=== PATIENT | female | born 1950 | race Hispanic/Latino ===

== ENCOUNTER 2020-03-01 23:20 | Inpatient (IN) | payer MEDICARE, OTHER ==
[~2020-03-01] VITALS: Ht 154.9 cm; Wt 74.8 kg
[2020-03-01] MEDS ORDERED: CEFEPIME 1GM/NS 0.9% 50 ML 50 ML IV STA (23:28)
[2020-03-01] MEDS ORDERED: VANCOMYCIN 1GM/NS 250 ML 250 ML IV STA (23:28)
[2020-03-02] VITALS (10 sets, daily range): BP systolic 132–174; BP diastolic 58–70
[2020-03-02 00:03] LABS: BASOPHILS # (AUTO) 0.1 (0.0-0.1); BASOPHILS % 0.6 % (0.0-1.0); EOSINOPHILS # (AUTO) 0.3 (0.0-0.4); EOSINOPHILS % 2.8 % (0.0-6.0); LYMPHOCYTES % 24.6 % (18.0-39.1); MEAN CORPUSCULAR HEMOGLOBIN 28.6 pg (28-32); MEAN CORPUSCULAR HGB CONC 32.4 g/dL (31-35); MEAN CORPUSCULAR VOLUME 88.1 fL (81-99); MONOCYTES % 8.3 % (4.4-11.3); NEUTROPHILS # (AUTO) 7.6 (2.1-6.9); NEUTROPHILS % 63.1 % (38.7-80.0); PLATELET COUNT 292 x10e3/uL (140-360); RED CELL DISTRIBUTION WIDTH 13.2 % (11.7-14.4)
[2020-03-02 00:09] LABS: ALBUMIN 3.7 g/dL (3.5-5.0); ANION GAP 15.4 mmol/L (8-16); CALCIUM 9.6 mg/dL (8.4-10.2); CREATININE, SERUM 0.98 mg/dL (0.57-1.11); POTASSIUM 4.4 mmol/L (3.5-5.1)
--- NOTE | 2020-03-02 00:17 | Emergency Department Note ---
History of Present Illnes History of Present Illness Chief Complaint: Extremity Trauma/Pain History of Present Illness This is a 69 year old female arrived to the ED with complaints of 10 days of right thumb pain. Patient states she was given approximately and skin cream with no improvement. Patient admits to having a little bit of drainage a few days ago and tried squeezing it, patient states she is a diabetic. Chief Complaint Comment 69 Y/O FEMALE PT AAOX3 PRESENTS TO ED WITH EDEMA AND PAIN TO RIGHT THUMB X1 WEEK; PT WAS SEEN BY PCP (DR. IBARRA ON 02/27/2020) AND RX'D DOXYCYCLINE AND MUPIROCIN; NO DRAINAGE NOTED AT THIS TIME; 20 GAUGE IV CATH PLACED TO PTS LEFT WRIST, BLOOD OBTAINED FOR LAB ANALYSIS, CULTURES; ER MD TO TRIAGE FOR INITIAL EVAL Historian: Patient Arrival Mode: Car Onset (how long ago): day(s) Radiation: Reports non-radiation Severity: moderate Onset quality: gradual Duration (how long): day(s) Timing of current episode: constant Progression: worsening Chronicity: new Past Medical/Family History Physician Review I have reviewed the patient's past medical and family history. Any updates have been documented here. Past Medical History Recent Fever: No Clinical Suspicion of Infectio: No New/Unexplained Change in Ment: No Past Medical History: Hypertension, Diabetes, Hypothyroidism Past Surgical History: Hysterectomy Family History Family history of heart diseas: Yes Other Last Tetanus: UNKNOWN Review of Systems Review of Systems Constitutional: Reports no symptoms EENTM: Reports no symptoms Cardiovascular: Reports no symptoms Respiratory: Reports no symptoms Gastrointestinal: Reports no symptoms Genitourinary: Reports no symptoms Musculoskeletal: Reports as per HPI, Reports joint pain Integumentary: Reports no symptoms Neurological: Reports no symptoms Psychological: Reports no symptoms Endocrine: Reports no symptoms Hematological/Lymphatic: Reports no symptoms Physical Exam Related Data Triage Vital Signs Vital Signs Date Time Temp Pulse Resp B/P (MAP) Pulse Ox O2 Delivery O2 Flow Rate FiO2 03/01/20 23:29 99.0 81 18 183/91 97 Vital signs reviewed: Yes Physical Exam CONSTITUTIONAL Constitutional: Present well-developed, Present well-nourished HENT HENT: Present normocephalic, Present atraumatic, Present oropharynx clear/moist, Present nose normal HENT L/R: Present left ext ear normal, Present right ext ear normal EYES Eyes: Reports PERRL, Reports conjunctivae normal NECK Neck: Present ROM normal PULMONARY Pulmonary: Present effort normal, Present breath sounds normal CARDIOVASCULAR Cardiovascular: Present regular rhythm, Present heart sounds normal, Present capillary refill normal, Present normal rate GASTROINTESTINAL Abdominal: Present soft, Present nontender, Present bowel sounds normal GENITOURINARY Genitourinary: Present exam deferred SKIN Skin: Present dry, Present other (6 x 8 cm abscess noted over the medial and la teral aspect of right thumb) MUSCULOSKELETAL Musculoskeletal: Present ROM normal NEUROLOGICAL Neurological: Present alert, Present oriented x 3, Present no gross motor or sensory deficits PSYCHOLOGICAL Psychological: Present mood/affect normal, Present judgement normal Results Laboratory Laboratory Laboratory Tests Test 03/01/20 23:20 Lab results reviewed: Yes Laboratory comments Laboratory Tests Test 03/02/20 01:23 03/01/20 23:20 Bedside Glucose 209 mg/dL (70-120) White Blood Count 11.98 x10e3/uL (4.8-10.8) Red Blood Count 4.20 x10e6/uL (3.6-5.1) Hemoglobin 12.0 g/dL (12.0-16.0) Hematocrit 37.0 % (34.2-44.1) Mean Corpuscular Volume 88.1 fL (81-99) Mean Corpuscular Hemoglobin 28.6 pg (28-32) Mean Corpuscular Hemoglobin Concent 32.4 g/dL (31-35) Red Cell Distribution Width 13.2 % (11.7-14.4) Platelet Count 292 x10e3/uL (140-360) Neutrophils (%) (Auto) 63.1 % (38.7-80.0) Lymphocytes (%) (Auto) 24.6 % (18.0-39.1) Monocytes (%) (Auto) 8.3 % (4.4-11.3) Eosinophils (%) (Auto) 2.8 % (0.0-6.0) Basophils (%) (Auto) 0.6 % (0.0-1.0) Neutrophils # (Auto) 7.6 (2.1-6.9) Lymphocytes # (Auto) 3.0 (1.0-3.2) Monocytes # (Auto) 1.0 (0.2-0.8) Eosinophils # (Auto) 0.3 (0.0-0.4) Basophils # (Auto) 0.1 (0.0-0.1) Absolute Immature Granulocyte (auto 0.07 x10e3/uL (0-0.1) Sodium Level 138 mmol/L (136-145) Potassium Level 4.4 mmol/L (3.5-5.1) Chloride Level 105 mmol/L (98-107) Carbon Dioxide Level 22 mmol/L (22-29) Anion Gap 15.4 mmol/L (8-16) Blood Urea Nitrogen 19 mg/dL (7-26) Creatinine 0.98 mg/dL (0.57-1.11) Estimat Glomerular Filtration Rate 56 ML/MIN (60-) BUN/Creatinine Ratio 19 (6-25) Glucose Level 274 mg/dL (74-118) Calcium Level 9.6 mg/dL (8.4-10.2) Total Bilirubin 0.4 mg/dL (0.2-1.2) Aspartate Amino Transf (AST/SGOT) 19 IU/L (5-34) Alanine Aminotransferase (ALT/SGPT) 35 IU/L (0-55) Alkaline Phosphatase 106 IU/L (40-150) Total Protein 7.5 g/dL (6.5-8.1) Albumin 3.7 g/dL (3.5-5.0) Globulin 3.8 g/dL (2.3-3.5) Albumin/Globulin Ratio 1.0 (0.8-2.0) Imaging Imaging results reviewed: Yes Impressions 1. 1.8 cm soft tissue contour abnormality at the level of the first finger interphalangeal joint with associated soft tissue swelling. No underlying bony abnormality. This may reflect an abscess in the appropriate clinical setting. Assessment & Plan Medical Decision Making MDM 69-year-old female brought to the ED with marked right thumb abscess, patient on doxycycline as an outpatient, however, states abscess is worsening. No area of fluctuance noted on exam. Given patient's history of diabetes and failed outpatient therapy she required hospital admission for IV antibiotics and hand/plastic surgery consultation for I&D. Assessment & Plan Final Impression: (1) Abscess of thumb, right Depart Disposition: ADMITTED Last Vital Signs Date Time Temp Pulse Resp B/P (MAP) Pulse Ox O2 Delivery O2 Flow Rate FiO2 03/01/20 23:29 99.0 81 18 183/91 97 Home Meds Reported Medications Doxycycline Hyclate (DOXYCYCLINE HYCLATE) 100 Mg Capsule, 100 MG PO DAILY, CAP 03/02/20 Losartan Potassium (LOSARTAN POTASSIUM) 25 Mg Tablet, 50 DAILY 03/02/20 Levothyroxine Sodium (LEVOTHYROXINE SODIUM) 50 Mcg Tablet, 25 MCG PO DAILY, #30 TAB 03/02/20 Glimepiride (GLIMEPIRIDE) 2 Mg Tablet, 4 MG PO BID, TAB 03/02/20 Sitagliptin Phosphate (JANUVIA) 100 Mg Tablet, 100 MG PO DAILY, #30 TAB 03/02/20 Metformin Hcl (METFORMIN HCL) 500 Mg Tablet, 1000 MG PO BID, #60 TAB 03/02/20 Carvedilol (CARVEDILOL) 12.5 Mg Tablet, 12.5 MG PO BID, #60 TAB 03/02/20 Atorvastatin Calcium (ATORVASTATIN CALCIUM) 20 Mg Tablet, 40 MG PO HS, #30 TAB 03/02/20 Medications in the ED Vancomycin HCl 250 ml @ 200 mls/hr NOW STAT IV ; Start 03/01/20 at 23:28; Stop 03/02/20 at 00:42 Cefepime HCl 50 ml @ 100 mls/hr Q24H STAT IV ; Start 03/01/20 at 23:28; Stop 03/01/20 at 23:57; Status DC LEONIDES ALEXANDER DO Mar 02, 2020 00:17
[2020-03-02] MEDS ORDERED: HYDROCODONE/APAP 5MG-325MG TAB PO PRN (00:30)
--- NOTE | 2020-03-02 01:22 | Diagnostic Imaging Report ---
Exam: Right Hand Series. History: Diabetic, thumb infection Comparison: None. Findings: 3 views of the right hand. There is normal bone mineralization. Negative for acute, displaced fracture or dislocation. The joint spaces are preserved. 1.8 cm soft tissue contour abnormality at the level of the first finger interphalangeal joint . Associated soft tissue swelling. No cystic erosive changes. Impression: 1. 1.8 cm soft tissue contour abnormality at the level of the first finger interphalangeal joint with associated soft tissue swelling. No underlying bony abnormality. This may reflect an abscess in the appropriate clinical setting. Signed by: Dr. Lev Bradley M.D. on 03/02/2020 1:19 AM
--- NOTE | 2020-03-02 02:35 | NUR ---
PT IS TRANSFERRED FROM ER .RESPIRATIONS ARE EVEN AND UNLABORED ,SKIN WARM AND DRY TO TOUCH .LEFT WRIST S/L RT THUMB ABSCESS.ASSESSMENT DONE .ORIENTED TO THE PT TO THE ENVIRONMENT .CALL LIGHT WITH IN REACH .CONTINUE TO MONITOR
[2020-03-02] MEDS ORDERED: METFORMIN HCL500 MG PO (02:53)
[2020-03-02] MEDS ORDERED: DOXYCYCLINE HY100 MG PO (02:53)
[2020-03-02] MEDS ORDERED: LOSARTAN POTASS25 MG (02:53)
[2020-03-02] MEDS ORDERED: CARVEDILOL12.5 MG PO (02:53)
[2020-03-02] MEDS ORDERED: GLIMEPIRIDE2 MG PO (02:53)
[2020-03-02] MEDS ORDERED: ATORVASTATIN CA20 MG PO (02:53)
[2020-03-02] MEDS ORDERED: LEVOTHYROXINE50 MCG PO (02:53)
[2020-03-02] MEDS ORDERED: JANUVIA100 MG PO (02:53)
[2020-03-02] MEDS: HYDROCODONE/APAP 5MG-325MG TAB PO PRN ×2 (06:15→14:58)
--- NOTE | 2020-03-02 06:50 | NUR ---
RECEIVED BEDSIDE SHIFT REPORT FROM OFF GOING NURSE. PATIENT IS RESTING IN BED. NO ACUTE DISTRESS NOTED. CALL LIGHT WITHIN REACH. BED IN THE LOWEST POSITION.
--- NOTE | 2020-03-02 07:03 | NUR ---
BEDSIDE REPORT GIVEN TO THE ONCOMING NURSE
--- NOTE | 2020-03-02 11:54 | NUR ---
H&P cc: finger infection HPI: 69yoF, PCP , developed finger infection right thumb; ongoing for 6 days; no f/c/s/. PMH: hypothyroisim, DM2, HTN, HLD, PSHX: hysterectomy ALlergies; see emr FH/SH; ; no cigs meds; see MAR ROS: no f/c/s/N/V/D/DOHERTY/cp/sob/skin rash/dizziness/confusion v/s; revd PE tired appearing anicteric ns1s2 mod bs soft nt nd right thumb with blister-like appearing with edema/tenderness/warmth skin dry flat affect a&ox3; [place] labs/meds revd A/P: Thumb abscess- IV vanco/zosyn; wound care; Dm2- hab1c/lipids; ssi FARHANA- IVF Hypothyroidism- replacement HTN- treat as needed. HLD- statin Obesity- hba1c/lipids BMI 31.2- as above Prop: scd Dispo: Timo Wood MD, PhD.
[2020-03-02] MEDS ORDERED: DEXTROSE 50% SYRINGE 50 ML IV PRN (12:00)
[2020-03-02] MEDS ORDERED: SODIUM CHLORIDE 0.9% 250ML 250 ML ONE (12:15)
[2020-03-02] MEDS: INSULIN REGULAR, HUMAN 100 UNIT/1 ML 3ML VIAL SQ SCH ×3 (12:20→22:00)
[2020-03-02] MEDS: PIPER-TAZ 3.375 GM 50 ML IV SCH ×2 (12:35→17:19)
[2020-03-02] MEDS: VANCOMYCIN 1GM/NS 250 ML 250 ML IV SCH (13:16)
[2020-03-02] MEDS: SITAGLIPTIN 100 MG TAB PO SCH (17:00)
[2020-03-02] MEDS: CARVEDILOL 12.5 MG TAB PO SCH (17:18)
[2020-03-02] MEDS ORDERED: ACETAMINOPHEN 325 MG TAB PO PRN (17:45)
[2020-03-02] MEDS ORDERED: ONDANSETRON HCL INJ 2MG/ML 2ML 2 MG/ML VIAL IV PRN (17:45)
[2020-03-02] MEDS ORDERED: ZOLPIDEM TARTRATE 5 MG TAB PO PRN (17:45)
[2020-03-02] MEDS ORDERED: DOCUSATE SODIUM 100 MG CAP PO PRN (17:45)
--- NOTE | 2020-03-02 19:23 | NUR ---
BEDSIDE SHIFT REPORT GIVEN TO ONCOMING NURSE. PATIENT IS RESTING IN BED. NO S/S OF DISTRESS NOTED AT THIS TIME. CALL LIGHT WITHIN REACH. BED IN THE LOWEST POSITION.
--- NOTE | 2020-03-02 19:47 | NUR ---
RECIVED PT IN BED AOX3 C/O PAIN .CALL LIGHT WITH IN REACH.CONTINUE TO MONITOR
[2020-03-02] MEDS: ATORVASTATIN 40 MG TAB PO SCH (21:00)
[2020-03-02] MEDS ORDERED: ATORVASTATIN 20 MG TAB PO SCH (21:00)
[2020-03-02] MEDS: TRAMADOL HCL 50 MG TAB PO PRN (21:30)
[2020-03-03] VITALS (9 sets, daily range): BP systolic 104–161; BP diastolic 59–87
[2020-03-03] MEDS: VANCOMYCIN 1GM/NS 250 ML 250 ML IV SCH ×2 (01:17→13:53)
[2020-03-03] MEDS: PIPER-TAZ 3.375 GM 50 ML IV SCH ×5 (05:20→23:48)
[2020-03-03] MEDS: LEVOTHYROXINE SODIUM 50 MCG TAB PO SCH (05:20)
[2020-03-03] MEDS: HYDROCODONE/APAP 5MG-325MG TAB PO PRN (05:30)
--- NOTE | 2020-03-03 05:30 | NUR ---
IM- progress note O/N see below ROS: no f/c/s/N/V/D/DOHERTY/cp/sob/skin rash/dizziness/confusion v/s; revd PE tired appearing anicteric ns1s2 mod bs soft nt nd right thumb with blister-like appearing with edema/tenderness/warmth skin dry flat affect a&ox3; [place] labs/meds revd A/P: Thumb abscess- IV vanco/zosyn; wound care; Dm2- hab1c/lipids; ssi FARHANA- IVF Hypothyroidism- replacement HTN- treat as needed. HLD- statin Obesity- hba1c/lipids BMI 31.2- as above Prop: scd Dispo: 03/03 check labs; finger debridement today Timo Wood MD, PhD.
--- NOTE | 2020-03-03 05:49 | NUR ---
PT C/O PAIN AND MEDICATED WITH TRAMADOL AND NORCO .CALL LIGHT WITH IN REACH .CONTINUE TO MONITOR
[2020-03-03 06:06] LABS: BASOPHILS % 0.3 % (0.0-1.0); EOSINOPHILS # (AUTO) 0.4 (0.0-0.4); HEMATOCRIT 34.2 % (34.2-44.1); HEMOGLOBIN 11.1 g/dL (12.0-16.0); LYMPHOCYTES # (AUTO) 2.6 (1.0-3.2); LYMPHOCYTES % 28.7 % (18.0-39.1); MEAN CORPUSCULAR HEMOGLOBIN 28.5 pg (28-32); MEAN CORPUSCULAR HGB CONC 32.5 g/dL (31-35); MEAN CORPUSCULAR VOLUME 87.7 fL (81-99); MONOCYTES # (AUTO) 0.8 (0.2-0.8); MONOCYTES % 9.2 % (4.4-11.3); NEUTROPHILS # (AUTO) 5.2 (2.1-6.9); NEUTROPHILS % 57.4 % (38.7-80.0); PLATELET COUNT 309 x10e3/uL (140-360); RED CELL DISTRIBUTION WIDTH 13.2 % (11.7-14.4)
[2020-03-03 06:14] LABS: CHOL/HDL RATIO 4.8 (3.0-3.6)
[2020-03-03 07:01] LABS: ANION GAP 11.9 mmol/L (8-16); BLOOD UREA NITROGEN 12 mg/dL (7-26); BUN/CREATININE RATIO 16 (6-25); CALCIUM 8.6 mg/dL (8.4-10.2); CARBON DIOXIDE 23 mmol/L (22-29); CHLORIDE 108 mmol/L (98-107); CREATININE, SERUM 0.75 mg/dL (0.57-1.11); EST GLOMERULAR FILTRATION RATE > 60 ML/MIN (60-); GLUCOSE 142 mg/dL (74-118); POTASSIUM 3.9 mmol/L (3.5-5.1); SODIUM 139 mmol/L (136-145)
--- NOTE | 2020-03-03 07:30 | NUR ---
pt in bed resting no distress noted ,pain level to rt hand 3
[2020-03-03] MEDS: INSULIN REGULAR, HUMAN 100 UNIT/1 ML 3ML VIAL SQ SCH ×4 (08:30→21:57)
--- NOTE | 2020-03-03 08:45 | NUR ---
dr vitale here debrided left hand at bed side ,tolerated well ,purulent drainage noted,stated ok for pt to go home with po antibiotics
[2020-03-03] MEDS ORDERED: SITAGLIPTIN 100 MG TAB PO SCH ×2 (09:00→17:00)
[2020-03-03] MEDS: LOSARTAN POTASSIUM 25 MG TAB PO SCH (09:13)
[2020-03-03] MEDS: CARVEDILOL 12.5 MG TAB PO SCH ×2 (09:13→17:03)
[2020-03-03] MEDS: TRAMADOL HCL 50 MG TAB PO PRN (09:14)
--- NOTE | 2020-03-03 09:37 | Operative Report ---
DATE OF PROCEDURE: SURGEON: Patty Rodriguez MD PROCEDURE: Incision and drainage. PROCEDURE IN DETAIL: After explaining the procedure, I used a #15 blade, incision and drainage of the right thumb abscess done. Foul smelling pus drained 3 mL abscess deroofed. Wound was cleaned with normal saline and iodine. Applied 4 x 4 and tape. The patient tolerated the procedure, may be discharged with oral antibiotics. MD JEFFERSON Medeiros/MODL /[id number]
--- NOTE | 2020-03-03 10:17 | Consultation ---
DATE OF CONSULTATION: Wound Consultation Thank you, Dr. Wood, for asking me to see this patient. HISTORY OF PRESENT ILLNESS: A 69-year-old female patient with history of diabetes, hyperthyroidism admitted with abscess to the right thumb and wound consult was called. The patient developed an abscess to the right thumb two days back. No trauma. PAST MEDICAL HISTORY: Hypertension, diabetes, hypothyroidism. SURGICAL HISTORY: Hysterectomy. PERSONAL HISTORY: No history of smoking or alcohol. PHYSICAL EXAMINATION: VITAL SIGNS: Temperature 98.4, blood pressure 132/64. HEENT: Normal. NECK: No JVD. LUNGS: Clear. CVS: Normal. ABDOMEN: Soft. Bowel sounds normal. EXTREMITIES: Lower extremities, no edema. SKIN: Right thumb, patient has paronychia with abscess. ASSESSMENT: Right thumb abscess and paronychia. PLAN: We will do incision and drainage. MD JEFFERSON Medeiros/MODL /[id number]
--- NOTE | 2020-03-03 16:16 | NUR ---
Nutrition Screen Note RD Recommendation for Physician: -Continue current diet as ordered Plan of Care: RD following, monitoring for tolerance and adequacy Nutrition reason for involvement: Nutrition Risk Trigger (MST 2) Primary Diagnose(s): abscess of right thumb PMH: HTN, diabetes, hypothyroid Ht: 61 in Wt:165 lb BMI: 31.2 kg/m2 IBW:[address] Assessment: (03/03/20) Chart reviewed. Labs and meds reviewed. Pt is a 69 year old female admitted with abscess of right thumb. It is recorded that pt is consuming 75-100% of meals. Pt stated she usually weighs 165 lbs. Will continue to monitor. Current Diet: 1800 ADA Malnutrition Evaluation (03/03/20) The patient does not meet criteria for a specified degree of malnutrition at this time. Will re-evaluate at follow-up as appropriate. Diet Education Needs Assessment: RD is available for diet education as needed Nutrition Care Level: low Signed: Eladia Huerta, RD, LD
[2020-03-03] MEDS: SITAGLIPTIN 100 MG TAB PO SCH (17:03)
--- NOTE | 2020-03-03 17:50 | NUR ---
pt in bed resting ,drsg to rt thumb cd&i.denies pain
--- NOTE | 2020-03-03 19:46 | NUR ---
pt received. no ss of distress noted. right hand drsg cdi. no co pain at time. will cont to follow poc. call [place] within reach.
[2020-03-03] MEDS: ATORVASTATIN 40 MG TAB PO SCH (20:16)
[2020-03-04] MEDS: VANCOMYCIN 1GM/NS 250 ML 250 ML IV SCH ×2 (01:33→13:06)
[2020-03-04] MEDS: PIPER-TAZ 3.375 GM 50 ML IV SCH ×3 (05:20→18:09)
[2020-03-04] MEDS: LEVOTHYROXINE SODIUM 50 MCG TAB PO SCH (05:20)
[2020-03-04 05:21] VITALS: BP 164/88
--- NOTE | 2020-03-04 05:25 | NUR ---
pt resting. no ss of distress noted. call [place] within reach.
--- NOTE | 2020-03-04 07:08 | NUR ---
PATIENT IN BED WITH HEAD OF BED ELEVATED WATCHING TV, NO DISTRESS NOTED. DRESSING DRY AND INTACT TO RIGHT THUMB. BED IN LOWER POSITION, CALL LIGHT AT REACH.
[2020-03-04] MEDS: INSULIN REGULAR, HUMAN 100 UNIT/1 ML 3ML VIAL SQ SCH ×3 (07:30→16:30)
[2020-03-04 07:39] VITALS: BP 141/65
[2020-03-04 07:44] VITALS: BP 141/65
--- NOTE | 2020-03-04 08:50 | NUR ---
Pt. expressed no spiritual or emotional concerns at this time. Balance Wheel Arm Burnisher provided hospitality and information on how to reach windows application packager, if needed. No need to follow at this time. REJI BROWN Balance Wheel [employer] Burnisher Spiritual Care Department O: [phone]
[2020-03-04] MEDS: CARVEDILOL 12.5 MG TAB PO SCH ×2 (09:04→17:17)
[2020-03-04] MEDS: LOSARTAN POTASSIUM 25 MG TAB PO SCH (09:04)
--- NOTE | 2020-03-04 11:28 | NUR ---
DRESSING CHANGED TO RIGHT THUMB ORDERED. PATIENT SITTING AT BED SIDE TALKING ON THE PHONE, CALL LIGHT AT REACH.
[2020-03-04 11:34] VITALS: BP 146/67
--- NOTE | 2020-03-04 13:37 | NUR ---
D/C Summary Principal Dx: Thumb abscess- IV vanco/zosyn; wound care; Dm2- hab1c/lipids; ssi FARHANA- IVF Secondary: Hypothyroidism- replacement HTN- treat as needed. HLD- statin Obesity- hba1c/lipids BMI 31.2- as above Prop: scd Dispo: 03/03 check labs; finger debridement today 03-04 Hba1c/LDL ; uncontrolled DM; s/p I&D; cont IV abx; d/c home stable d/c>35mins f/u pcp 2-4 days and 1 week Timo Wood MD, PhD.
[2020-03-04] MEDS: HYDROCODONE/APAP 5MG-325MG TAB PO PRN (14:15)
--- NOTE | 2020-03-04 15:03 | NUR ---
PATIENT C/O PAIN, MEDICATED ORDERED. WILL CLOSELY MONITOR.
[2020-03-04 15:15] VITALS: BP 138/61
[2020-03-04] MEDS: SITAGLIPTIN 100 MG TAB PO SCH (17:17)
[2020-03-04] MEDS ORDERED: CLINDAMYCIN HC150 MG PO (18:30)
[2020-03-04] MEDS ORDERED: CEFUROXIME500 MG PO (18:30)
--- NOTE | 2020-03-04 19:11 | NUR ---
BEDSIDE SHIFT REPORT GIVEN TO ON COMING NURSE.
[2020-03-04 19:53] VITALS: BP 141/63
--- NOTE | 2020-03-04 20:21 | NUR ---
Patient Discharge assessment peerformed. Written instructions and prescription given to the patient. IV taken out. Wound on the thumb cleaned and dressed. Patient notified to please follow up with her PCP and to monitor for signs of infection to the wound. Patient escorted to the lobby by staff. signing off care.
== END 2020-03-04 20:24 | disposition home or self-care (01) | DRG 580 ==
LOC: ER 23:20 → ERHOLD 03-02 01:28 → MED/SURG3 03-02 01:34
PROVIDERS: ADMIT Internal Medicine; ATTEND Internal Medicine
PROC: 0J9J0ZZ Drainage of Right Hand Subcutaneous Tissue and Fascia, Open Approach (ICD-10-PCS; principal; 2020-03-02)
DX: L02.511 Cutaneous abscess of right hand (principal); N17.9 Acute kidney failure, unspecified; E11.9 Type 2 diabetes mellitus without complications; I10 Essential (primary) hypertension; E03.9 Hypothyroidism, unspecified; E78.5 Hyperlipidemia, unspecified; E66.9 Obesity, unspecified; Z68.31 Body mass index [BMI] 31.0-31.9, adult; Z90.710 Acquired absence of both cervix and uterus; Z82.49 Family history of ischemic heart disease and other diseases of the circulatory system; L03.011 Cellulitis of right finger; Z11.59 Encounter for screening for other viral diseases; Z79.84 Long term (current) use of oral hypoglycemic drugs
CPT/HCPCS: 36415; 80048; 80053; 80061; 80202; 82948; 83036; 85025; 87040; 87635; 96367; 96372; 99284; J0692; J1817; J2543; J3370; J7050

== ENCOUNTER 2021-02-28 11:17 | Inpatient (IN) | payer OTHER, MEDICARE ==
[~2021-02-28] VITALS: Ht 157.5 cm; Wt 68.0 kg
[~2021-02-28 11:17] MED LIST: ATORVASTATIN CA20 MG PO; CARVEDILOL12.5 MG PO; CEFUROXIME500 MG PO; CLINDAMYCIN HC150 MG PO; DOXYCYCLINE HY100 MG PO; GLIMEPIRIDE2 MG PO; JANUVIA100 MG PO; LEVOTHYROXINE50 MCG PO; LOSARTAN POTASS25 MG; METFORMIN HCL500 MG PO
[2021-02-28] MEDS ORDERED: ASPIRIN 81 MG CHEW TAB PO NR (11:45)
[2021-02-28 12:03] LABS: BASOPHILS # (AUTO) 0.1 (0.0-0.1); BASOPHILS % 0.5 % (0.0-1.0); EOSINOPHILS # (AUTO) 0.1 (0.0-0.4); EOSINOPHILS % 1.3 % (0.0-6.0); HEMOGLOBIN 11.7 g/dL (12.0-16.0); LYMPHOCYTES # (AUTO) 2.6 (1.0-3.2); LYMPHOCYTES % 27.9 % (18.0-39.1); MEAN CORPUSCULAR HEMOGLOBIN 28.5 pg (28-32); MEAN CORPUSCULAR HGB CONC 32.5 g/dL (31-35); MEAN CORPUSCULAR VOLUME 87.6 fL (81-99); MONOCYTES # (AUTO) 0.7 (0.2-0.8); MONOCYTES % 7.2 % (4.4-11.3); NEUTROPHILS # (AUTO) 5.9 (2.1-6.9); NEUTROPHILS % 62.7 % (38.7-80.0); PLATELET COUNT 387 x10e3/uL (140-360); RED BLOOD COUNT 4.11 x10e6/uL (3.6-5.1); RED CELL DISTRIBUTION WIDTH 13.1 % (11.7-14.4)
[2021-02-28 12:14] LABS: ALANINE AMINOTRANSFERASE 18 IU/L (0-55); ALBUMIN 3.8 g/dL (3.5-5.0); ALKALINE PHOSPHATASE 99 IU/L (40-150); BLOOD UREA NITROGEN 15 mg/dL (7-26); BUN/CREATININE RATIO 19 (6-25); CALCIUM 8.9 mg/dL (8.4-10.2); CARBON DIOXIDE 22 mmol/L (22-29); CHLORIDE 105 mmol/L (98-107); CREATINE KINASE 102 IU/L (29-168); EST GLOMERULAR FILTRATION RATE 71 ML/MIN (60-); GLUCOSE 206 mg/dL (74-118); MAGNESIUM 1.6 MG/DL (1.3-2.1); SODIUM 139 mmol/L (136-145)
[2021-02-28] MEDS ORDERED: DEXTROSE 50% SYRINGE 50 ML IV PRN (13:30)
[2021-02-28] MEDS ORDERED: ONDANSETRON HCL INJ 2MG/ML 2ML 2 MG/ML VIAL IV PRN (13:30)
[2021-02-28] MEDS ORDERED: MORPHINE SULFATE INJ 2 MG/ML SYR IV PRN (13:30)
[2021-02-28] MEDS ORDERED: NITROGLYCERIN 0.4 MG SUBL SL PRN (13:30)
[2021-02-28 15:00] VITALS: BP_SYST 144; BP_SYST 151; BP_DIAS 70; BP_DIAS 73
[2021-02-28] MEDS: FAMOTIDINE 20 MG/2 ML VIAL IV SCH (15:14)
[2021-02-28 16:02] VITALS: BP 144/70
[2021-02-28] MEDS: INSULIN LISPRO 100 UNIT/1 ML 3ML VIAL SQ SCH ×2 (17:39→21:00)
[2021-02-28 18:35] LABS: CREATINE KINASE 85 IU/L (29-168)
[2021-02-28 20:00] VITALS: BP 141/72
[2021-02-28 21:00] VITALS: BP 141/72
[2021-02-28] MEDS ORDERED: ATORVASTATIN 20 MG TAB PO SCH (21:00)
[2021-02-28] MEDS ORDERED: MELOXICAM 7.5 MG TAB PO ONE (22:30)
[2021-03-01] VITALS (7 sets, daily range): BP systolic 124–154; BP diastolic 63–77
[2021-03-01] MEDS: FAMOTIDINE 20 MG/2 ML VIAL IV SCH ×2 (02:49→13:31)
[2021-03-01 05:32] LABS: HEMATOCRIT 35.5 % (34.2-44.1); HEMOGLOBIN 11.7 g/dL (12.0-16.0); MEAN CORPUSCULAR HEMOGLOBIN 28.9 pg (28-32); MEAN CORPUSCULAR VOLUME 87.7 fL (81-99); RED BLOOD COUNT 4.05 x10e6/uL (3.6-5.1); RED CELL DISTRIBUTION WIDTH 13.2 % (11.7-14.4)
[2021-03-01 05:33] LABS: BASOPHILS # (AUTO) 0.1 (0.0-0.1); BASOPHILS % 0.6 % (0.0-1.0); EOSINOPHILS # (AUTO) 0.3 (0.0-0.4); EOSINOPHILS % 3.2 % (0.0-6.0); LYMPHOCYTES # (AUTO) 3.7 (1.0-3.2); MONOCYTES # (AUTO) 0.7 (0.2-0.8); MONOCYTES % 7.4 % (4.4-11.3); NEUTROPHILS # (AUTO) 5.2 (2.1-6.9); NEUTROPHILS % 51.4 % (38.7-80.0); PLATELET COUNT 392 x10e3/uL (140-360)
[2021-03-01 06:01] LABS: CREATINE KINASE 84 IU/L (29-168)
[2021-03-01 06:01] LABS: ALBUMIN 3.5 g/dL (3.5-5.0); ALBUMIN/GLOBULIN RATIO 0.9 (0.8-2.0); CALCIUM 8.9 mg/dL (8.4-10.2); CHOL/HDL RATIO 4.4 (3.0-3.6); CREATININE, SERUM 0.78 mg/dL (0.57-1.11)
[2021-03-01] MEDS ORDERED: LEVOTHYROXINE SODIUM 25 MCG TABLET PO SCH (07:30)
[2021-03-01] MEDS ORDERED: MELOXICAM 7.5 MG TAB PO SCH (09:00)
[2021-03-01] MEDS ORDERED: ASPIRIN 81 MG ENTERIC COATED PO SCH (09:00)
[2021-03-01] MEDS ORDERED: LOSARTAN POTASSIUM 25 MG TAB PO SCH (09:00)
[2021-03-01] MEDS ORDERED: SITAGLIPTIN 100 MG TAB PO SCH (09:00)
[2021-03-01] MEDS: CARVEDILOL 12.5 MG TAB PO SCH ×2 (10:03→16:50)
[2021-03-01] MEDS: INSULIN LISPRO 100 UNIT/1 ML 3ML VIAL SQ SCH ×3 (10:04→16:49)
[2021-03-01 14:21] LABS: CREATINE KINASE 78 IU/L (29-168)
[2021-03-01] MEDS ORDERED: ENOXAPARIN SOD INJ 40 MG/0.4 ML SYR SC SCH (17:00)
[2021-03-01] MEDS ORDERED: FAMOTIDINE20 MG PO (19:09)
[2021-03-01] MEDS ORDERED: MELOXICAM7.5 MG PO (19:09)
[2021-03-01] MEDS ORDERED: ZOFRAN4 MG PO (19:09)
[2021-03-01] MEDS ORDERED: ASPIRIN EC81 MG PO (19:09)
== END 2021-03-01 21:04 | disposition home or self-care (01) | DRG 313 ==
LOC: ER 11:40 → ERHOLD 13:29 → MED/SURG2 14:09
PROVIDERS: ADMIT Internal Medicine; ATTEND Internal Medicine
DX: R07.89 Other chest pain (principal); E03.9 Hypothyroidism, unspecified; I10 Essential (primary) hypertension; E78.5 Hyperlipidemia, unspecified; E11.9 Type 2 diabetes mellitus without complications
CPT/HCPCS: 36415; 71045; 80053; 80061; 82550; 82553; 82948; 83036; 83735; 83880; 84484; 85025; 93005; 99284; J1650

== ENCOUNTER → 2021-03-26 | Outpatient (CLI) | payer MEDICARE ==
[~2021-03-26] MED LIST changes: +ASPIRIN EC81 MG PO; +FAMOTIDINE20 MG PO; +MELOXICAM7.5 MG PO; +REGADENOSON 0.4 MG/5 ML SYR IV ONE; +ZOFRAN4 MG PO
== END ==
LOC: NM 10:25
PROVIDERS: ATTEND Internal Medicine
DX: R07.9 Chest pain, unspecified (principal)
CPT/HCPCS: 78452; 93017; 93306; A9502; J2785